=== PATIENT | male | born 1975 | race African-American/Black ===

== ENCOUNTER 2018-11-29 20:07 | Emergency (ER) | payer MEDICAID ==
[~2018-11-29] VITALS: Ht 190.5 cm; Wt 132.0 kg
[2018-11-29] MEDS ORDERED: ONDANSETRON HCL 4MG/2ML INJ IV ONE (21:00)
[2018-11-29] MEDS ORDERED: HYDRALAZINE 20MG/ML VIAL IV ONE (21:00)
[2018-11-29] MEDS ORDERED: DIPHENHYDRAMINE 50MG/ML VIAL IV ONE (21:30)
[2018-11-29] MEDS ORDERED: METOCLOPRAMIDE HCL 10MG/2ML VIAL IV ONE (21:30)
[2018-11-29] MEDS ORDERED: KETOROLAC 30MG/ML VIAL IV ONE (21:45)
[2018-11-29 22:54] LABS: BASOPHILS % 0.3 % (0.0-2.0); EOSINOPHILS % 0.7 % (0.0-5.0); HEMATOCRIT. 37.6 % (42.0-52.0); HEMOGLOBIN. 12.6 g/dL (14.0-18.0); MEAN CORPUSCULAR HEMOGLOBIN 28.2 pg (28.0-32.0); MEAN CORPUSCULAR VOLUME 84.2 fL (80.0-94.0); MEAN PLATELET VOLUME 8.1 fl (7.4-10.4); MONOCYTES % 6.5 % (2.0-8.0); NEUTROPHILS % 83.5 % (40.0-76.0); PLATELET 271 x1000/uL (130-400); RED BLOOD CELL COUNT 4.47 mill/uL (4.7-6.1); RED CELL DISTRIBUTION WIDTH 14.7 % (11.6-14.6)
[2018-11-29 22:58] LABS: CHLORIDE 103 mEq/L (98-107)
[2018-11-29 23:01] LABS: CLARITY URINE CLEAR (CLEAR); COLOR URINE YELLOW (YELLOW); KETONES URINE NEGATIVE (NEGATIVE); LEUKOCYTE ESTERASE URINE NEGATIVE (NEGATIVE); NITRITE URINE NEGATIVE (NEGATIVE); OCCULT BLOOD URINE NEGATIVE (NEGATIVE); PROTEIN URINE NEGATIVE (NEGATIVE); SPECIFIC GRAVITY URINE 1.024 (1.005-1.030); UROBILINOGEN URINE 0.2 E.U./dL (0.2-1.0)
[2018-11-29 23:02] LABS: ETHANOL BLOOD < 10 mg/dL
[2018-11-29 23:05] LABS: LDL CHOLESTEROL 134 mg/dL (5-100)
[2018-11-29] MEDS ORDERED: IOHEXOL-350 100 ML BOTTLE ONE (23:06)
[2018-11-29 23:09] LABS: PROTHROMBIN TIME 10.4 sec (9.6-11.0)
[2018-11-29 23:13] LABS: *AMPHETAMINES SCREEN URINE NEGATIVE (NEGATIVE); *BARBITURATES SCREEN URINE NEGATIVE (NEGATIVE)
[2018-11-29 23:14] LABS: *BENZODIAZEPINES SCREEN URINE NEGATIVE (NEGATIVE); *COCAINE SCREEN URINE PRESUMTIVE POSITIVE (NEGATIVE); CANNABINOID URINE SCREEN NEGATIVE (NEGATIVE); METHADONE URINE SCREEN NEGATIVE (NEGATIVE); OPIATES URINE SCREEN NEGATIVE (NEGATIVE); PHENCYCLIDINE URINE SCREEN NEGATIVE (NEGATIVE)
[2018-11-30] MEDS ORDERED: SODIUM CHLORIDE 0.9% 1,000 ML IV ONE
[2018-11-30 01:26] VITALS: BP 141/89
== END 2018-11-30 01:36 | disposition home or self-care (01) ==
LOC: ER 20:07 → CANBEDREQ 11-30 01:43
DX: G43.909 Migraine, unspecified, not intractable, without status migrainosus (principal); I16.1 Hypertensive emergency; I10 Essential (primary) hypertension; E11.9 Type 2 diabetes mellitus without complications; F12.10 Cannabis abuse, uncomplicated
CPT/HCPCS: 36415; 70450; 70496; 71045; 80053; 80305; 80320; 81003; 82962; 83721; 84484; 85025; 85610; 93005; 96374; 96375; 99284; J0360; J1200; J1885; J2405; J2765; Q9967; G0480

== ENCOUNTER 2024-08-08 05:49 | Emergency (ER) | payer MEDICAID ==
[~2024-08-08] VITALS: Ht 190.5 cm; Wt 110.0 kg
[~2024-08-08 05:49] MED LIST: GLIP10TA17 PO; SITA100T11 PO; SULF1TAB48 MT; TERB250T88 PO
[2024-08-08 05:59] VITALS: TEMP 37.2; O2SAT 100
[2024-08-08 06:00] VITALS: O2SAT 99
[2024-08-08] MEDS: SULFAMETHOXAZOLE/TRIMETHOPRIM 800/160MG TABLET PO ONE (09:44)
[2024-08-08] MEDS: CEPHALEXIN 250MG CAPSULE PO ONE (09:44)
[2024-08-08] MEDS: ACETAMINOPHEN 325MG TABLET PO ONE (09:44)
[2024-08-08] MEDS: LIDOCAINE HCL 1% 20ML VIAL INFIL ONE (09:45)
[2024-08-08 11:48] LABS: CHLORIDE 104 mEq/L (98-107); POTASSIUM 4.3 mEq/L (3.5-5.1); SODIUM 137 mEq/L (136-145)
[2024-08-08 11:49] LABS: CALCIUM 9.3 mg/dL (8.7-10.4); CARBON DIOXIDE 28 mEq/L (21-32)
[2024-08-08 11:54] LABS: CREATININE 1.2 mg/dL (0.6-1.3); GLUCOSE 267 mg/dL (70-105); UREA NITROGEN BLOOD 13 mg/dL (9-23)
[2024-08-08] MEDS: PIPERACILLIN/TAZO 3.375G/50ML 50 ML IV STA (12:43)
[2024-08-08] MEDS ORDERED: VANCOMYCIN 1000MG/250ML 250 ML IV NR (12:45)
[2024-08-08] MEDS ORDERED: VANCOMYCIN 1G PREMIX 200 ML IV NR (13:00)
[2024-08-08 13:56] LABS: BASOPHILS % 0.4 % (0.0-2.0); EOSINOPHILS % 0.3 % (0.0-5.0); HEMATOCRIT. 37.6 % (42.0-52.0); HEMOGLOBIN. 12.3 g/dL (14.0-18.0); LYMPHOCYTES % 10.3 % (20.0-50.0); MEAN CORPUSCULAR HEMOGLOBIN 28.1 pg (28.0-32.0); MEAN CORPUSCULAR HGB CONC 32.7 g/dL (31.0-37.0); MEAN CORPUSCULAR VOLUME 86.1 fL (80.0-94.0); MEAN PLATELET VOLUME 8.4 fl (7.4-10.4); MONOCYTES % 12.9 % (2.0-8.0); NEUTROPHILS % 76.1 % (40.0-76.0); PLATELET 303 x1000/uL (130-400); RED BLOOD CELL COUNT 4.37 mill/uL (4.7-6.1); RED CELL DISTRIBUTION WIDTH 14.1 % (11.6-14.6); WHITE BLOOD COUNT 11.6 x1000/uL (4.5-11.0)
[2024-08-08] MEDS: VANCOMYCIN 1000MG/250ML 250 ML IV STA (14:15)
[2024-08-08 14:37] VITALS: BP 131/81; PULSE 99; RESP 18
[2024-08-08] MEDS: MORPHINE SULFATE 4 MG/ML INJ (FOR IV/IM USE) IV ONE (14:37)
[2024-08-08] MEDS: ONDANSETRON HCL 4MG/2ML INJ IV ONE (14:37)
== END 2024-08-08 14:46 | disposition left against medical advice (07) ==
LOC: ER 05:49 → EDBEDREQ 11:48 → ER 14:46
DX: M86.9 Osteomyelitis, unspecified (principal); J06.9 Acute upper respiratory infection, unspecified; E11.65 Type 2 diabetes mellitus with hyperglycemia; B97.89 Other viral agents as the cause of diseases classified elsewhere; I10 Essential (primary) hypertension; F17.210 Nicotine dependence, cigarettes, uncomplicated
CPT/HCPCS: 80048; 83605; 85025; 85610; 85651; 86850; 86900; 86901; 87040; 36415; 84145; 71045; 73660; 96367; 96365; 96375; 99291; J3490; J2405; J2543; J3370; J2270; Z7610 ×5; A4606